=== PATIENT | female | born 1975 | race Caucasian/White ===

== ENCOUNTER 2018-10-09 07:44 | Emergency (ER) | payer OTHER, SELFPAY ==
[2018-10-09 07:45] VITALS: BP 122/62; PULSE 85; RESP 18; TEMP 36.5; O2SAT 100; BMI 33.3
--- NOTE | 2018-10-09 08:11 | ED.PREGNANCY ---
HPI - General Chief complaint: OB/Uterine Contractions Stated complaint: Sharp Ovary pain,poss Time Seen by Provider: 10/09/18 07:48 Source: patient and family () Mode of arrival: ambulatory Limitations: no limitations History of Present Illness HPI Narrative: This is a 43-year-old female comes to the emergency department with complaint of left lower abdominal pain. She states she started noticing pain last night about 7:00 a.m.. Patient states it has become increasingly severe. Patient states she has had a positive test over the weekend. She has felt sort of chills, she had some breast tenderness, she started having a little bit of spotting on Tuesday. She has not had any other vaginal bleeding or discharge. Patient denies any fevers, she denies any nausea or vomiting. Patient states the pain in her left lower abdomen is pretty significant. She has had ovarian cysts in the past but not for quite a while. She states this is her 1st . She did not use any in vitro fertilization or medications to assist with . Patient states that she had her last regular period about mid July but states she did have a. Early August, patient states it is roller and shorter and only 3 days in length. She has a history of rosacea as well as ovarian cyst. Denies any other past medical history. She has denies any prior surgical history. Allergies include codeine which causes vomiting. She denies any other allergies. She does, she occasionally drinks alcohol. She denies any illicit. She has a primary care through the [facility]. Date of Last Menstrual Period: 09/02/18 (very light, spotting, last regular menstrual period 08/12/19. ) Patient : Yes Expected Date of Delivery: 06/07/19 Related Data Previous Rx's Medication Instructions Recorded hydrocodone-acetaminophen [[place]] 1 tab PO Q6H PRN #10 tab 10/09/18 prenat.vits,mami,[id number] 1 tab PO DAILY #30 tab 10/09/18 Allergies Allergy/AdvReac Type Severity Reaction Status Date / Time codeine Allergy Intermediate Vomiting Verified 10/09/18 07:59 Review of Systems Review of Systems ROS Unobtainable: All systems reviewed & are unremarkable except as noted in HPI and below Constitutional Denies chills, Denies fever(s), Denies lethargy and Denies weakness Gastrointestinal Gastrointestinal: Reports abdominal pain (left sided pelvic pain), Denies change in bowel habits, Denies diarrhea, Reports nausea and Denies vomiting Genitourinary Reports as per HPI, Reports abnormal menses (normal menses mid July, short and light/ early August.), Reports abnormal vaginal bleeding (spotting Tuesday.), Denies hematuria, Reports pelvic pain (left sided), Denies flank pain, Denies urinary incontinence, Denies urinary urgency, Denies vaginal discharge and Denies vaginal odor Integumentary/Breasts Denies rash Neurologic Denies weakness PMFSH - Past Medical History Medical history: Reports other (rosacea) Ovarian cysts Surgical history: Reports no surgical history 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 ) Patient : Yes Expected Date of Delivery: 06/07/19 Exam Narrative Exam Narrative: GENERAL: Alert and oriented x three, well-nourished, well-appearing female in moderate distress. HEENT: Head normocephalic, atraumatic, EOMI, pupils reactive, face symmetric, moist mucous membranes NECK: Supple, full range of motion CARDIOVASCULAR: Regular rate and rhythm without murmurs, rubs or gallops. RESPIRATORY: Breath sounds equal bilaterally, no wheezes rales or rhonchi. ABDOMEN: Soft, left lower quadrant tenderness. Normoactive bowel sounds all 4 quadrants. No guarding or rebound, rigidity, no mass : Mild left CVA tenderness EXTREMITIES: Normal range of motion, no clubbing or edema. Neurovascularly intact. NEUROLOGICAL: Cranial nerves II through XII grossly intact. Moving all extremities SKIN: Warm, dry, no petechiae, no rashes or lesions. Initial Vital Signs Initial Vital Signs: Vital Signs Temperature 97.7 F 10/09/18 07:45 Pulse Rate 85 10/09/18 07:45 Respiratory Rate 18 10/09/18 07:45 Blood Pressure 122/62 10/09/18 07:45 Pulse Oximetry 100 10/09/18 07:45 Course Orders Ordered: Discontinued Medications Sodium Chloride (Normal Saline 0.9%) 1,000 mls @ 150 mls/hr IV CONT CARMEN Last Infusion: 10/09/18 10:32 Dose: 0 mls/hr Admin: 10/09/18 08:23 Dose: 150 mls/hr Morphine Sulfate (Morphine) 4 mg IV NOW ONE Stop: 10/09/18 08:10 Last Admin: 10/09/18 08:22 Dose: 4 mg Ondansetron HCl (Zofran) 4 mg IV NOW ONE Stop: 10/09/18 08:10 Last Admin: 10/09/18 08:22 Dose: 4 mg Vital Signs - 8 hr 10/09/18 07:45 Temperature 97.7 F Pulse Rate 85 Respiratory Rate 18 Blood Pressure 122/62 Pulse Oximetry 100 MDM - OB/Uterine Contractions Lab Data Attestation: I reviewed the patient's lab results. Result diagrams: 10/09/18 08:00 10/09/18 08:00 Lab Results 10/09/18 10/09/18 10/09/18 Range/Units 08:00 08:00 08:00 WBC 10.9 (4.5-11.0) X10^3/uL RBC 4.35 (4.0-5.2) X10^6/uL Hgb 13.7 (12.0-16.0) g/dL Hct 39.0 (36-46) % MCV 89.7 (80-100) fL MCH 31.5 (26-34) PG MCHC 35.1 (30-36) % RDW 13.1 (11.6-14.8) % Plt Count 276 (150-400) X10^3/uL Neut % (Auto) 69.4 (50-75) % Lymph % (Auto) 19.1 L (25-40) % Otero % (Auto) 6.2 (3-14) % Eos % (Auto) 4.7 H (2-4) % Baso % (Auto) 0.6 (0-2) % Neut # (Auto) 7600 H (2303-6786) /uL Lymph # (Auto) 2100 (5438-5442) /uL Otero # (Auto) 700 (0-900) /uL Eos # (Auto) 500 H (0-450) /uL Baso # (Auto) 100 (0-100) /uL Sodium 136 L (137-145) mmol/L Potassium 3.9 (3.4-5.1) mmol/L Chloride 104 (98-107) mmol/L Carbon Dioxide 23 (22-32) mmol/L BUN 11 (7-17) mg/dL Creatinine 0.60 (0.52-1.04) mg/dL Estimated GFR > 60.0 (>60) mL/min BUN/Creatinine Ratio 18.3 (6-22) Glucose 94 (70-100) mg/dL Calcium 8.7 (8.4-10.2) mg/dL Total Bilirubin 0.5 (0.2-1.3) mg/dL AST 23 (14-36) IU/L ALT 28 (9-52) IU/L Alkaline Phosphatase 61 (38-126) U/L Total Protein 7.3 (6.3-8.2) g/dL Albumin 4.3 (3.5-5.0) g/dL Globulin 3.0 (1.7-4.1) g/dL Albumin/Globulin Ratio 1.4 (1.0-2.8) HCG, Quant 7421.0 mIU/mL Urine RBC (0-5/HPF) Urine WBC (0-5/HPF) Ur Squamous Epith Cells Urine Bacteria (None) Urine Mucus (Negative) Ur Culture Indicated? Blood Type A Positive 10/09/18 Range/Units 08:00 WBC (4.5-11.0) X10^3/uL RBC (4.0-5.2) X10^6/uL Hgb (12.0-16.0) g/dL Hct (36-46) % MCV (80-100) fL MCH (26-34) PG MCHC (30-36) % RDW (11.6-14.8) % Plt Count (150-400) X10^3/uL Neut % (Auto) (50-75) % Lymph % (Auto) (25-40) % Otero % (Auto) (3-14) % Eos % (Auto) (2-4) % Baso % (Auto) (0-2) % Neut # (Auto) (1136-9871) /uL Lymph # (Auto) (6353-7168) /uL Otero # (Auto) (0-900) /uL Eos # (Auto) (0-450) /uL Baso # (Auto) (0-100) /uL Sodium (137-145) mmol/L Potassium (3.4-5.1) mmol/L Chloride (98-107) mmol/L Carbon Dioxide (22-32) mmol/L BUN (7-17) mg/dL Creatinine (0.52-1.04) mg/dL Estimated GFR (>60) mL/min BUN/Creatinine Ratio (6-22) Glucose (70-100) mg/dL Calcium (8.4-10.2) mg/dL Total Bilirubin (0.2-1.3) mg/dL AST (14-36) IU/L ALT (9-52) IU/L Alkaline Phosphatase (38-126) U/L Total Protein (6.3-8.2) g/dL Albumin (3.5-5.0) g/dL Globulin (1.7-4.1) g/dL Albumin/Globulin Ratio (1.0-2.8) HCG, Quant mIU/mL Urine RBC 0-1/hpf (0-5/HPF) Urine WBC 0-1/hpf (0-5/HPF) Ur Squamous Epith Cells 5-10 /hpf H Urine Bacteria Few (2-10) H (None) Urine Mucus 1+ H (Negative) Ur Culture Indicated? Cult not indicated Blood Type Point of Care Testing Test Results Positive Urine Dip Bedside Urine Glucose Negative Bedside Urine Bilirubin - Negative Bedside Urine Ketone - Negative Urine Specific [place] 1.020 Bedside Urine Occult Blood +/- Bedside Urine pH 6.0 Bedside Urine Protein +/- 15 Bedside Urine Urobilinogen +/- 1mg Bedside Urine Nitrite - Negative Bedside Urine Leukocytes - Negative Esterase Imaging Data pelvic US: Radiologist's impression: [place] [address] Ultrasound Report Signed Patient: Gertrude Dumas [facility]#: [id number] : 1975Acct:[id number] Age/Sex: 43 / FDate of Service: 10/09/18 Loc: ED Accession Number: [id number] Procedure: US OB <= 14 weeks fetus Ordering Provider: Aline Ruiz D.O. PROCEDURE: US OB <= 14 WEEKS FETUS INDICATIONS: LEFT ADNEXAL PAIN OUTSIDE/PRIOR DATING DATA: Last menstrual period (LMP): 08/05/18. LMP-based estimated date of delivery (OBI): 05/12/19. First dating scan (date and location): This study, 10/09/18. Estimated date of delivery (OBI) from first dating scan: 06/05/19, plus or -7 days, based on this study. TECHNIQUE: Real-time scanning was performed of the fetus and maternal pelvic organs, with image documentation. Endovaginal scanning was also performed to better visualize the fetus and maternal ovaries. COMPARISON: None. FINDINGS: Embryo: A fetus is not yet seen but there is what appears to be a gestational sac with a yolk sac within, with a mean sac diameter 1.1 cm that correlates with the gestational age of 5 weeks 6 days Measurement variability in dating: +/- 4 weeks by LMP, +/- 7 days by mean sac diameter (use before 6 weeks gestation if crown-rump length not able to be measured), +/- 5 days by crown-rump length (up to 8 weeks 6 days gestation), +/- 7 days by crown-rump length (up to 13 weeks 6 days gestation). Maternal organs: Ovaries normal considering gestational status. Limited images through the kidneys demonstrate no hydronephrosis. IMPRESSION: Intrauterine gestational sac is visualized but a pole is not yet seen and at this early stage of would not be expected to be visualized. The current age would be estimated at 5 weeks 6 days, plus or -7 days, assuming viable gestation. No suspicion for ectopic based on this study. Followup OB ultrasound in 7-10 days may be warranted to document viable intrauterine gestation. Followup anatomic survey at 21 weeks gestation is recommended. Dictated by: Werner Contreras M.D. on 10/09/2018 at 9:17 Approved by: Werner Contreras M.D. on 10/09/2018 at 9:19 [facility] Narrative Medical decision making narrative: By dates and patient exam concerning for ectopic . Patient's ultrasound shows introduced uterine gestational sac visualized but no pole is seen. Patient's age BS dated 5 to suggest weeks. Patient ECG is in the 7000 range, she is Rh positive. Lab work does not show any major acute abnormalities. Patient has a corpus luteum cyst. By exam and lab work no other suspicious causes for abdominal pain at this time. We did give some anticipatory guidance. Plan for follow-up with OBGYN. Patient is to start prenatals. Discharge Plan Departure Patient Disposition: Home Clinical Impression: Abdominal pain during Qualifiers: Trimester: first trimester Qualified Code(s): O26.891 - Other specified related conditions, first trimester Discharge Date/Time: 10/09/18 10:33 Interventions: ED Discharge Assessment Last Done: 10/09/18 10:33 Instructions: Reducing Foodborne Risks During , DI for Vaginal Bleeding During , DI for Abdominal Pain -- Early Activity Restrictions/Additional Instructions: Follow up with lobsterman in the next week for recheck, call for an appointment. Take vitamins once daily. A prescription for prenatals was sent to [facility]. You may continue normal activities, no heavy lifting or exertional activities till cleared by physician. You may take pain medications as prescribed, these medications can make you sleepy, do not drive, perform hazardous activities or make any major decisions while taking them. Avoid taking narcotic pain medications unless necessary, you may take tylenol instead. You may take up to 1000mg every 8 hours or 3000mg total in 24 hours. Your narcotic pain medication does have some tylenol in it. Return for fevers greater than 100.4F, rapidly worsening pain, large clots or rapidly increasing bleeding, persistent vomiting, black or bloody stools or other new or concerning symptoms. Prescriptions: New prenat.vits,mami,[id number] tablet 1 tab PO DAILY Qty: 30 RF: 0 hydrocodone-acetaminophen [[place]] 5-325 mg tablet 1 tab PO Q6H PRN (Reason: pain) Qty: 10 RF: 0 Referrals: Shania Rivas MD [Physician] -
[2018-10-09] MEDS: MORPHINE 4 MG/ML INJ IV (08:22)
[2018-10-09] MEDS: ONDANSETRON 4 MG/2 ML INJ IV (08:22)
[2018-10-09] MEDS: SODIUM CHLORIDE 0.9% 1,000 ML 150 ML IV (08:23)
--- NOTE | 2018-10-09 08:24 | ED_ITS ---
HPI - General Chief complaint: OB/Uterine Contractions Stated complaint: Sharp Ovary pain,poss Time Seen by Provider: 10/09/18 07:48 Source: patient and family () Mode of arrival: ambulatory Limitations: no limitations History of Present Illness HPI Narrative: This is a 43-year-old female comes to the emergency department with complaint of left lower abdominal pain. She states she started noticing pain last night about 7:00 a.m.. Patient states it has become increasingly severe. Patient states she has had a positive test over the weekend. She has felt sort of chills, she had some breast tenderness, she started having a little bit of spotting on Tuesday. She has not had any other vaginal bleeding or discharge. Patient denies any fevers, she denies any nausea or vomiting. Patient states the pain in her left lower abdomen is pretty significant. She has had ovarian cysts in the past but not for quite a while. She states this is her 1st . She did not use any in vitro fertilization or medications to assist with . Patient states that she had her last regular period about mid July but states she did have a. 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 She has a history of rosacea as well as ovarian cyst. Denies any other past medical history. She has denies any prior surgical history. Allergies include codeine which causes vomiting. She denies any other allergies. She does, she occasionally drinks alcohol. She denies any illicit. She has a primary care through the [facility]. Date of Last Menstrual Period: 09/02/18 (very light, spotting, last regular menstrual period 08/12/19. ) Patient : Yes Expected Date of Delivery: 06/07/19 Related Data Previous Rx's Medication Instructions Recorded hydrocodone-acetaminophen [[place]] 1 tab PO Q6H PRN #10 tab 10/09/18 prenat.vits,mami,[id number] 1 tab PO DAILY #30 tab 10/09/18 Allergies Allergy/AdvReac Type Severity Reaction Status Date / Time codeine Allergy Intermediate Vomiting Verified 10/09/18 07:59 Review of Systems Review of Systems ROS Unobtainable: All systems reviewed & are unremarkable except as noted in HPI and below Constitutional Denies chills, Denies fever(s), Denies lethargy and Denies weakness Gastrointestinal Gastrointestinal: Reports abdominal pain (left sided pelvic pain), Denies change in bowel habits, Denies diarrhea, Reports nausea and Denies vomiting Genitourinary Reports as per HPI, Reports abnormal menses (normal menses mid July, short and light/ early August.), Reports abnormal vaginal bleeding (spotting Tuesday.), Denies hematuria, Reports pelvic pain (left sided), Denies flank pain, Denies urinary incontinence, Denies urinary urgency, Denies vaginal discharge and Denies vaginal odor Integumentary/Breasts Denies rash Neurologic Denies weakness PMFSH - Past Medical History Medical history: Reports other (rosacea) Ovarian cysts 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 ) Patient : Yes Expected Date of Delivery: 06/07/19 Exam Narrative Exam Narrative: GENERAL: Alert and oriented x three, well-nourished, well- appearing female in moderate distress. HEENT: Head normocephalic, atraumatic, EOMI, pupils reactive, face symmetric, moist mucous membranes NECK: Supple, full range of motion CARDIOVASCULAR: Regular rate and rhythm without murmurs, rubs or gallops. RESPIRATORY: Breath sounds equal bilaterally, no wheezes rales or rhonchi. ABDOMEN: Soft, left lower quadrant tenderness. Normoactive bowel sounds all 4 quadrants. No guarding or rebound, rigidity, no mass : Mild left CVA tenderness EXTREMITIES: Normal range of motion, no clubbing or edema. Neurovascularly intact. NEUROLOGICAL: Cranial nerves II through XII grossly intact. Moving all extremities SKIN: Warm, dry, no petechiae, no rashes or lesions. Initial Vital Signs Initial Vital Signs: Vital Signs Temperature 97.7 F 10/09/18 07:45 Pulse Rate 85 10/09/18 07:45 Respiratory Rate 18 10/09/18 07:45 Blood Pressure 122/62 10/09/18 07:45 Pulse Oximetry 100 10/09/18 07:45 Course Orders Ordered: Discontinued Medications Sodium Chloride (Normal Saline 0.9%) 1,000 mls @ 150 mls/hr IV CONT CARMEN Last Infusion: 10/09/18 10:32 Dose: 0 mls/hr Admin: 10/09/18 08:23 Dose: 150 mls/hr Morphine Sulfate (Morphine) 4 mg IV NOW ONE Stop: 10/09/18 08:10 Last Admin: 10/09/18 08:22 Dose: 4 mg Ondansetron HCl (Zofran) 4 mg IV NOW ONE Stop: 10/09/18 08:10 Last Admin: 10/09/18 08:22 Dose: 4 mg Vital Signs - 8 hr 10/09/18 07:45 Temperature 97.7 F Pulse Rate 85 Respiratory Rate 18 Blood Pressure 122/62 Pulse Oximetry 100 MDM - OB/Uterine Contractions Lab Data Attestation: I reviewed the patient's lab results. Result diagrams: 10/09/18 08:00 10/09/18 08:00 Lab Results 10/09/18 10/09/18 10/09/18 Range/Units 08:00 08:00 08:00 WBC 10.9 (4.5-11.0) X10^3/uL RBC 4.35 (4.0-5.2) X10^6/uL Hgb 13.7 (12.0-16.0) g/dL Hct 39.0 (36-46) % MCV 89.7 (80-100) fL MCH 31.5 (26-34) PG MCHC 35.1 (30-36) % RDW 13.1 (11.6-14.8) % Plt Count 276 (150-400) X10^3/uL Neut % (Auto) 69.4 (50-75) % Lymph % (Auto) 19.1 L (25-40) % [place]rent[place] % (Auto) 6.2 (3-14) % Eos % (Auto) 4.7 H (2-4) % Baso % (Auto) 0.6 (0-2) % Neut # (Auto) 7600 H (3287-0017) /uL Lymph # (Auto) 2100 (8578-6530) /uL [place] # (Auto) 700 (0-900) /uL Eos # (Auto) 500 H (0-450) /uL Baso # (Auto) 100 (0-100) /uL Sodium 136 L (137-145) mmol/L Potassium 3.9 (3.4-5.1) mmol/L Chloride 104 (98-107) mmol/L Carbon Dioxide 23 (22-32) mmol/L BUN 11 (7-17) mg/dL Creatinine 0.60 (0.52-1.04) mg/dL Estimated GFR > 60.0 (>60) mL/min BUN/Creatinine Ratio 18.3 (6-22) Glucose 94 (70-100) mg/dL Calcium 8.7 (8.4-10.2) mg/dL Total Bilirubin 0.5 (0.2-1.3) mg/dL AST 23 (14-36) IU/L ALT 28 (9-52) IU/L Alkaline Phosphatase 61 (38-126) U/L Total Protein 7.3 (6.3-8.2) g/dL Albumin 4.3 (3.5-5.0) g/dL Globulin 3.0 (1.7-4.1) g/dL Albumin/Globulin Ratio 1.4 (1.0-2.8) HCG, Quant 7421.0 mIU/mL Urine RBC (0-5/HPF) Urine WBC (0-5/HPF) Ur Squamous Epith Cells Urine Bacteria (None) Urine Mucus (Negative) Ur Culture Indicated? Blood Type A Positive 10/09/18 Range/Units 08:00 WBC (4.5-11.0) X10^3/uL RBC (4.0-5.2) X10^6/uL Hgb (12.0-16.0) g/dL Hct (36-46) % MCV (80-100) fL MCH (26-34) PG MCHC (30-36) % RDW (11.6-14.8) % Plt Count (150-400) X10^3/uL Neut % (Auto) (50-75) % Lymph % (Auto) (25-40) % [place]rent[place] % (Auto) (3-14) % Eos % (Auto) (2-4) % Baso % (Auto) (0-2) % Neut # (Auto) (2077-7117) /uL Lymph # (Auto) (1084-0387) /uL [place]rentiss # (Auto) (0-900) /uL Eos # (Auto) (0-450) /uL Baso # (Auto) (0-100) /uL Sodium (137-145) mmol/L Potassium (3.4-5.1) mmol/L Chloride (98-107) mmol/L Carbon Dioxide (22-32) mmol/L BUN (7-17) mg/dL Creatinine (0.52-1.04) mg/dL Estimated GFR (>60) mL/min BUN/Creatinine Ratio (6-22) Glucose (70-100) mg/dL Calcium (8.4-10.2) mg/dL Total Bilirubin (0.2-1.3) mg/dL AST (14-36) IU/L ALT (9-52) IU/L Alkaline Phosphatase (38-126) U/L Total Protein (6.3-8.2) g/dL Albumin (3.5-5.0) g/dL Globulin (1.7-4.1) g/dL Albumin/Globulin Ratio (1.0-2.8) HCG, Quant mIU/mL Urine RBC 0-1/hpf (0-5/HPF) Urine WBC 0-1/hpf (0-5/HPF) Ur Squamous Epith Cells 5-10 /hpf H Urine Bacteria Few (2-10) H (None) Urine Mucus 1+ H (Negative) Ur Culture Indicated? Cult not indicated Blood Type Point of Care Testing Test Results Positive Urine Dip Bedside Urine Glucose Negative Bedside Urine Bilirubin - Negative Bedside Urine Ketone - Negative Urine Specific [place] 1.020 Bedside Urine Occult Blood +/- Bedside Urine pH 6.0 Bedside Urine Protein +/- 15 Bedside Urine Urobilinogen +/- 1mg Bedside Urine Nitrite - Negative Bedside Urine Leukocytes - Negative Esterase Imaging Data pelvic US: Radiologist's impression: [place] [address] Ultrasound Report Signed Patient: Gertrude Dumas [facility]#: [id number] : 1975Acct:[id number] Age/Sex: 43 / FDate of Service: 10/09/18 Loc: ED Accession Number: [id number] Procedure: US OB <= 14 weeks fetus Ordering Provider: Aline Ruiz D.O. PROCEDURE: US OB <= 14 WEEKS FETUS INDICATIONS: LEFT ADNEXAL PAIN OUTSIDE/PRIOR DATING DATA: Last menstrual period (LMP): 08/05/18. LMP-based estimated date of delivery (OBI): 05/12/19. First dating scan (date and location): This study, 10/09/18. Estimated date of delivery (OBI) from first dating scan: 06/05/19, plus or -7 days, based on this study. TECHNIQUE: Real-time scanning was performed of the fetus and maternal pelvic organs, with image documentation. Endovaginal scanning was also performed to better visualize the fetus and maternal ovaries. COMPARISON: None. FINDINGS: Embryo: A fetus is not yet seen but there is what appears to be a gestational sac with a yolk sac within, with a mean sac diameter 1.1 cm that correlates with the gestational age of 5 weeks 6 days Measurement variability in dating: +/- 4 weeks by LMP, +/- 7 days by mean sac diameter (use before 6 weeks gestation if crown-rump length not able to be measured), +/- 5 days by crown-rump length (up to 8 weeks 6 days gestation), +/- 7 days by crown-rump length (up to 13 weeks 6 days gestation). Maternal organs: Ovaries normal considering gestational status. Limited images through the kidneys demonstrate no hydronephrosis. IMPRESSION: Intrauterine gestational sac is visualized but a pole is not yet seen and at this early stage of would not be expected to be visualized. The current age would be estimated at 5 weeks 6 days, plus or -7 days, assuming viable gestation. No suspicion for ectopic based on this study. Followup OB ultrasound in 7-10 days may be warranted to document viable intrauterine gestation. Followup anatomic survey at 21 weeks gestation is recommended. Dictated by: Werner Contreras M.D. on 10/09/2018 at 9:17 Approved by: Werner Contreras M.D. on 10/09/2018 at 9:19 [facility] Narrative Medical decision making narrative: By dates and patient exam concerning for ect opic . Patient's ultrasound shows introduced uterine gestational sac visualized but no pole is seen. Patient's age BS dated 5 to suggest weeks. Patient ECG is in the 7000 range, she is Rh positive. Lab work does not show any major acute abnormalities. Patient has a corpus luteum cyst. By exam and lab work no other suspicious causes for abdominal pain at this time. We did give some anticipatory guidance. Plan for follow-up with OBGYN. Patient is to start prenatals. 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 Take vitamins once daily. A prescription for prenatals was sent to [facility]. You may continue normal activities, no heavy lifting or exertional activities till cleared by physician. You may take pain medications as prescribed, these medications can make you sleepy, do not drive, perform hazardous activities or make any major decisions while taking them. Avoid taking narcotic pain medications unless necessary, you may take tylenol instead. You may take up to 1000mg every 8 hours or 3000mg total in 24 hours. Your narcotic pain medication does have some tylenol in it. Return for fevers greater than 100.4F, rapidly worsening pain, large clots or rapidly increasing bleeding, persistent vomiting, black or bloody stools or other new or concerning symptoms. Prescriptions: New prenat.vits,mami,[id number] tablet 1 tab PO DAILY Qty: 30 RF: 0 hydrocodone-acetaminophen [[place]] 5-325 mg tablet 1 tab PO Q6H PRN (Reason: pain) Qty: 10 RF: 0 Referrals: Shania Rivas MD [Physician] -
[2018-10-09 08:34] LABS: Add Manual Diff / Slide Review NO; Basophils Absolute Auto 100 /uL (0-100); Basophils Percent Auto 0.6 % (0-2); Eosinophils Absolute Auto 500 /uL (0-450); Eosinophils Percent Auto 4.7 % (2-4); Hemoglobin 13.7 g/dL (12.0-16.0); Lymphocytes Absolute Auto 2100 /uL (1100-4500); Lymphocytes Percent Auto 19.1 % (25-40); Mean Corpuscular HGB Conc 35.1 % (30-36); Mean Corpuscular Hemoglobin 31.5 PG (26-34); Mean Corpuscular Volume 89.7 fL (80-100); Monocytes Absolute Auto 700 /uL (0-900); Monocytes Percent Auto 6.2 % (3-14); Neutrophils Absolute Auto 7600 /uL (1500-7000); Neutrophils Percent Auto 69.4 % (50-75); Platelet Count 276 X10^3/uL (150-400); Red Blood Cell Count 4.35 X10^6/uL (4.0-5.2); Red Cell Distribution Width 13.1 % (11.6-14.8); White Blood Cell Count 10.9 X10^3/uL (4.5-11.0)
[2018-10-09 08:50] LABS: Bacteria Urine Few (2-10); Culture Indicated Urine Cult Not Indicated; Mucus Urine 1+ (Negative); RBC Urine 0-1/HPF (0-5/HPF); Squamous Epithelial Cell Urine 5-10 /HPF; WBC Urine 0-1/HPF (0-5/HPF)
[2018-10-09 08:59] LABS: Alanine Aminotransferase 28 IU/L (9-52); Albumin 4.3 g/dL (3.5-5.0); Albumin Globulin Ratio 1.4 (1.0-2.8); Alkaline Phosphatase 61 U/L (38-126); Aspartate Aminotransferase 23 IU/L (14-36); BUN Creatinine Ratio 18.3 (6-22); Bilirubin Total 0.5 mg/dL (0.2-1.3); Blood Urea Nitrogen 11 mg/dL (7-17); Calcium 8.7 mg/dL (8.4-10.2); Carbon Dioxide 23 mmol/L (22-32); Chloride 104 mmol/L (98-107); Estimated Glomerular Filt Rate > 60.0 mL/min (>60); Glucose 94 mg/dL (70-100); HEMOLYSIS < 15 (0-50); Potassium 3.9 mmol/L (3.4-5.1); Sodium 136 mmol/L (137-145); Total Protein 7.3 g/dL (6.3-8.2)
[2018-10-09 10:12] VITALS: BP 111/61; PULSE 64; RESP 16; O2SAT 100
== END 2018-10-09 10:33 | disposition home or self-care (01) ==
PROVIDERS: Emergency Provider Emergency Medicine
DX: O26.891 Other specified pregnancy related conditions, first trimester (principal); R10.9 Unspecified abdominal pain
CPT/HCPCS: 36591; 76801; 76817; 80053; 81003; 81015; 81025; 84702; 85025; 86900; 86901; 96361; 96374; 96375; 99283; 99284; J2270; J2405

== ENCOUNTER 2019-08-04 14:09 | Emergency (ER) | payer OTHER, SELFPAY ==
[2019-08-04 14:17] VITALS: BP 133/83; PULSE 72; RESP 16; TEMP 36.6; O2SAT 98; BMI 35.4
[2019-08-04 15:08] LABS: Bacteria Urine Few (2-10); Culture Indicated Urine Specimen Cultured; RBC Urine >100/HPF (0-5/HPF); Squamous Epithelial Cell Urine 0-1 /HPF (0-5/HPF); WBC Urine 10-30/HPF (0-5/HPF)
--- NOTE | 2019-08-04 15:32 | ED.FEMALEGU ---
HPI - Female Genitourinary <INOCENCIO Crook - Last Filed: 08/04/19 16:04> General Chief complaint: Urogenital-Female Stated complaint: poss UTI Time Seen by Provider: 08/04/19 14:26 Source: patient Mode of arrival: Ambulatory Limitations: no limitations History of Present Illness HPI Narrative: The patient is a 43-year-old female nonsmoker presents with the chief complaint dysuria urgency and frequency since yesterday. She states her urine is dark. She denies any fevers nausea vomiting or diarrhea. She denies any back pain, vaginal discharge, possibility of . She denies any abdominal pain, she denies any flank pain. Related Data Home Medications Medication Instructions Recorded Confirmed doxycycline hyclate 100 mg PO BID 08/04/19 08/04/19 Previous Rx's Medication Instructions Recorded sulfamethoxazole-trimethoprim 1 tab PO BID #10 tab 08/04/19 [Bactrim DS] Allergies Allergy/AdvReac Type Severity Reaction Status Date / Time codeine Allergy Intermediate Vomiting Verified 08/04/19 14:23 Review of Systems <INOCENCIO Crook - Last Filed: 08/04/19 16:04> Review of Systems Narrative: GENERAL: Denies chills, fatigue, malaise, fever, sweats. HEENT: Denies sinus pain, ear pain, sore throat, difficulty swallowing, dizziness. RESPIRATORY: Denies dyspnea, cough, wheezing, hemoptysis, sputum. CARDIOVASCULAR: Denies chest pain, palpitations, orthopnea, edema, GASTROINTESTINAL: Denies nausea, vomiting, abdominal pain, diarrhea, constipation, melena. : See HPI MUSCULOSKELETAL: denies weakness, joint pain, or bony pain SKIN: Denies rash, skin lesions, or other NEUROLOGIC: Denies weakness, headache, numbness, change in speech, confusion, seizures, incoordination. PSYCHIATRIC: No concerning psychosocial issues. 12 point review of systems is negative except for those stated above Patient History <INOCENCIO Crook - Last Filed: 08/04/19 16:04> alcohol intake frequency: 0-2 drinks per day Substance Use Type: does not use Exam <INOCENCIO Crook - Last Filed: 08/04/19 16:04> Narrative Exam Narrative: GENERAL: This is a well-nourished, well-developed patient, in no acute distress HEAD: Atraumatic. Normocephalic. No temporal or scalp tenderness. EYES: Pupils equal round and reactive. Extraocular motions intact. No scleral icterus. No injection or drainage. ENT: Nose without bleeding, purulent drainage or septal hematoma. Throat without erythema, tonsillar hypertrophy or exudate. Uvula midline. Airway patent. NECK: Trachea midline. No JVD or lymphadenopathy. Supple, nontender, no meningeal signs. CARDIOVASCULAR: Regular rate and rhythm RESPIRATORY: Clear to auscultation. Breath sounds equal bilaterally. No wheezes, rales, or rhonchi. No cough. No increased respiratory effort. No accessory muscle use. GASTROINTESTINAL: Abdomen soft, non-tender, nondistended. No hepato-splenomegaly, or palpable masses. No guarding. No pain to palpation. Active bowel sounds all 4 quadrants. No suprapubic pain to palpation. EXTREMITIES: No clubbing, cyanosis, or edema. No joint tenderness, effusion, or edema noted. BACK: Nontender without deformity or crepitance. No flank tenderness. NEURO: AOx3. SKIN: No rash or erythema. Initial Vital Signs Initial Vital Signs: Vital Signs Temperature 97.8 F 08/04/19 14:17 Pulse Rate 72 08/04/19 14:17 Respiratory Rate 16 08/04/19 14:17 Blood Pressure 133/83 08/04/19 14:17 Pulse Oximetry 98 08/04/19 14:17 <Jesse Jack MD - Last Filed: 08/04/19 21:17> Initial Vital Signs Initial Vital Signs: Vital Signs Temperature 97.8 F 08/04/19 14:17 Pulse Rate 72 08/04/19 14:17 Respiratory Rate 16 08/04/19 14:17 Blood Pressure 133/83 08/04/19 14:17 Pulse Oximetry 98 08/04/19 14:17 Course <INOCENCIO Crook - Last Filed: 08/04/19 16:04> Orders Ordered: ED Orders 08/04/19 14:51 Urine Culture Stat Urine Microscopic Stat Vital Signs Vital signs: Vital Signs - 8 hr 08/04/19 14:17 08/04/19 15:45 Temperature 97.8 F Pulse Rate 72 70 Respiratory Rate 16 14 Blood Pressure 133/83 Pulse Oximetry 98 99 <Jesse Jack MD - Last Filed: 08/04/19 21:17> Orders Ordered: ED Orders 08/04/19 14:51 Urine Culture Stat Urine Microscopic Stat Vital Signs Vital signs: Vital Signs - 8 hr 08/04/19 14:17 08/04/19 15:45 Temperature 97.8 F Pulse Rate 72 70 Respiratory Rate 16 14 Blood Pressure 133/83 Pulse Oximetry 98 99 MDM - Female Genitourinary <MAGED Crook- - Last Filed: 08/04/19 16:04> Lab Data Labs: Lab Results 08/04/19 Range/Units 14:51 Urine RBC >100/hpf H (0-5/HPF) Urine WBC 10-30/hpf H (0-5/HPF) Ur Squamous Epith Cells 0-1 /hpf (0-5/HPF) Urine Bacteria Few (2-10) H (None) Ur Culture Indicated? Specimen cultured Point of Care Testing Test Results Negative Urine Dip Bedside Urine Glucose Negative Bedside Urine Bilirubin - Negative Bedside Urine Ketone - Negative Urine Specific [place] 1.010 Bedside Urine Occult Blood +++ Bedside Urine pH 6.0 Bedside Urine Protein + 30 Bedside Urine Urobilinogen - Negative Bedside Urine Nitrite - Negative Bedside Urine Leukocytes ++ 125 Esterase MDM Narrative Medical decision making narrative: The patient is a 43-year-old female presents with a chief complaint of urinary urgency, frequency and dysuria. Urinalysis is concerning for UTI, with leukocyte esterase, blood, bacteria. She is nontoxic appearing, tolerating p.o. fluids well, afebrile and denies any flank pain. She does not have any clinical signs of pyelonephritis at this point time. I placed her on Bactrim. Discussed that urine culture result in 48-72 hours. Encouraged pushing fluids. Discussed at length PCP follow-up as well as return precautions including signs of systemic infection. Patient has no questions or concerns upon discharge and states understanding of return precautions as well as follow-up care. <Jesse Jack MD - Last Filed: 08/04/19 21:17> Lab Data Labs: Lab Results 08/04/19 Range/Units 14:51 Urine RBC >100/hpf H (0-5/HPF) Urine WBC 10-30/hpf H (0-5/HPF) Ur Squamous Epith Cells 0-1 /hpf (0-5/HPF) Urine Bacteria Few (2-10) H (None) Ur Culture Indicated? Specimen cultured Point of Care Testing Test Results Negative Urine Dip Bedside Urine Glucose Negative Bedside Urine Bilirubin - Negative Bedside Urine Ketone - Negative Urine Specific Midnight 1.010 Bedside Urine Occult Blood +++ Bedside Urine pH 6.0 Bedside Urine Protein + 30 Bedside Urine Urobilinogen - Negative Bedside Urine Nitrite - Negative Bedside Urine Leukocytes ++ 125 Esterase Discharge Plan Departure Patient Disposition: Home Clinical Impression: Urinary tract infection Qualifiers: Urinary tract infection type: site unspecified Hematuria presence: with hematuria Qualified Code(s): N39.0 - Urinary tract infection, site not specified Discharge Date/Time: 08/04/19 15:46 Instructions: DI for Urinary Tract Infection (UTI) Activity Restrictions/Additional Instructions: I sent a prescription of Bactrim to [facility]. This should help your urinary tract infection. We have a urine culture pending and will call you in 2-3 days if we need to change your antibiotic Please push fluids. Please come back to the emergency department for any acute concerns such as inability keep down fluids, high fevers etc. Prescriptions: New sulfamethoxazole-trimethoprim [Bactrim DS] 800-160 mg tablet 1 tab PO BID Qty: 10 RF: 0 No Action doxycycline hyclate 100 mg capsule 100 mg PO BID RF: 0 Referrals: Alka Lewis ARNP [Primary Care Provider] -
[2019-08-04 15:45] VITALS: PULSE 70; RESP 14; O2SAT 99
== END 2019-08-04 15:46 | disposition home or self-care (01) ==
PROVIDERS: Emergency Provider Nurse Practitioner Family; PCP Nurse Practitioner Family
DX: N39.0 Urinary tract infection, site not specified (principal)
CPT/HCPCS: 81003; 81015; 81025; 87077; 87086; 87186; 99282; 99283

== ENCOUNTER → 2019-09-19 13:29 | Outpatient (CLI) | payer OTHER, SELFPAY ==
[2019-09-19 14:08] LABS: Influenza A - CEPHEID Flu A NEGATIVE (NEGATIVE); Influenza B - CEPHEID Flu B NEGATIVE (NEGATIVE)
== END ==
PROVIDERS: PCP Nurse Practitioner Family; Visit Provider Physician Assistant
DX: R68.89 Other general symptoms and signs (principal)
CPT/HCPCS: 87502

== ENCOUNTER 2019-09-19 14:35 | Emergency (ER) | payer OTHER, SELFPAY ==
[2019-09-19 14:45] VITALS: BP 130/84; PULSE 98; RESP 18; TEMP 37.3; O2SAT 99
[2019-09-19 15:28] LABS: Amorphous Sediment Urine 1+; Bacteria Urine Many (>30); Culture Indicated Urine Specimen Cultured; Mucus Urine 1+ (Negative); RBC Urine 0-1/HPF (0-5/HPF); Squamous Epithelial Cell Urine 5-10 /HPF (0-5/HPF); WBC Urine 10-30/HPF (0-5/HPF)
[2019-09-19] MEDS: ONDANSETRON 4 MG ODT SL (16:14)
[2019-09-19] MEDS: KETOROLAC 60 MG/2 ML VIAL IM (16:14)
[2019-09-19 17:45] VITALS: BP 114/69; PULSE 91; RESP 16; O2SAT 97
--- NOTE | 2019-09-19 21:10 | ED.URI ---
HPI - URI/Sore Throat General Chief Complaint: Upper Respiratory Symptoms Stated Complaint: does not feel well Time Seen by Provider: 09/19/19 15:31 Source: patient and family Mode of arrival: Ambulatory Limitations: no limitations History of Present Illness HPI Narrative: The patient is a 43-year-old female nonsmoker with history of UTI who presents with her for chief complaint of generalized not feeling well. She states that she has nasal congestion, muscle aches and chills. She complains of nausea, no vomiting, no abdominal pain or diarrhea. She has not taken anything at home to feel better as she states using the Neti pot is ?too much energy.She had a negative flu swab today at the walk-in clinic She does complain of a urinary complaints, complains of painful urination no urgency or frequency. She was treated for urinary tract infection last month. Denies any vaginal discharge or concerns for sexually transmitted infections. Related Data Home Medications Medication Instructions Recorded Confirmed doxycycline hyclate 100 mg PO BID 08/04/19 09/19/19 Previous Rx's Medication Instructions Recorded sulfamethoxazole-trimethoprim 1 tab PO BID #10 tab 08/04/19 [Bactrim DS] clotrimazole 1 % topical cream 1 applictn TOP BID 28 Days #30 gram 08/30/19 ketorolac 10 mg PO TID PRN #15 tab 09/19/19 nitrofurantoin monohyd/m-cryst 100 mg PO Q12H 7 Days #14 cap 09/19/19 [Macrobid] ondansetron 4 mg PO Q6H PRN #20 tab 09/19/19 Allergies Allergy/AdvReac Type Severity Reaction Status Date / Time codeine Allergy Intermediate Vomiting Verified 09/19/19 13:21 Review of Systems Review of Systems Narrative: GENERAL: See HPI HEENT: See HPI RESPIRATORY: Denies dyspnea, cough, wheezing, hemoptysis, sputum. CARDIOVASCULAR: Denies chest pain, palpitations, orthopnea, edema, GASTROINTESTINAL: See HPI : See HPI MUSCULOSKELETAL: denies weakness, joint pain, or bony pain SKIN: Denies rash, skin lesions, or other NEUROLOGIC: Denies weakness, headache, numbness, change in speech, confusion, seizures, incoordination. PSYCHIATRIC: No concerning psychosocial issues. 12 point review of systems is negative except for those stated above Patient History Social History Smoking Status: Former smoker Smoking Status: Former smoker alcohol intake frequency: 0-2 drinks per day Substance Use Type: does not use Exam Narrative Exam Narrative: GENERAL: This is a well-nourished, well-developed patient, no acute distress lying on stretcher HEAD: Atraumatic. Normocephalic. No temporal or scalp tenderness. EYES: Pupils equal round and reactive. Extraocular motions intact. No scleral icterus. No injection or drainage. ENT: Nose without bleeding, purulent drainage or septal hematoma. Throat without erythema, tonsillar hypertrophy or exudate. Uvula midline. Airway patent. Bilateral TMs pearly cassidy. Pain to palpation of all sinuses. Moist mucous membranes. NECK: Trachea midline. No JVD or lymphadenopathy. Supple, nontender, no meningeal signs. CARDIOVASCULAR: Regular rate and rhythm without murmurs, gallops, or rubs. RESPIRATORY: Clear to auscultation. Breath sounds equal bilaterally. No wheezes, rales, or rhonchi. No cough. No increased respiratory effort. GASTROINTESTINAL: Abdomen soft, non-tender, nondistended. No hepato-splenomegaly, or palpable masses. No guarding. Active bowel sounds all 4 quadrants. EXTREMITIES: No clubbing, cyanosis, or edema. No joint tenderness, effusion, or edema noted. BACK: Nontender without deformity or crepitance. No flank tenderness. NEURO: AOx3. SKIN: No rash or erythema visible Initial Vital Signs Initial Vital Signs: Vital Signs Temperature 99.2 F 09/19/19 14:45 Pulse Rate 98 H 09/19/19 14:45 Respiratory Rate 18 09/19/19 14:45 Blood Pressure 130/84 09/19/19 14:45 Pulse Oximetry 99 09/19/19 14:45 Scores GCS Faby coma scale eye opening: Spontaneous [place] coma scale verbal response: Orientated Faby coma scale motor response: Obey commands [place] coma scale total score: 15 Course Orders Ordered: ED Orders 09/19/19 15:16 Urine Culture Stat Urine Microscopic Stat Discontinued Medications Ketorolac Tromethamine (Toradol) 60 mg IM NOW ONE Stop: 09/19/19 15:55 Last Admin: 09/19/19 16:14 Dose: 60 mg Documented by: MASOUD Ondansetron HCl (Zofran Odt) 4 mg SL NOW ONE Stop: 09/19/19 15:55 Last Admin: 09/19/19 16:14 Dose: 4 mg Documented by: MASOUD Vital Signs Vital signs: Vital Signs - 8 hr 09/19/19 14:45 09/19/19 17:45 Temperature 99.2 F Pulse Rate 98 H 91 H Respiratory Rate 18 16 Blood Pressure 130/84 Blood Pressure [Left Arm] 114/69 Pulse Oximetry 99 97 MDM - URI/Sore Throat Lab Data Labs: Lab Results 09/19/19 Range/Units 15:16 Urine RBC 0-1/hpf D (0-5/HPF) Urine WBC 10-30/hpf H (0-5/HPF) Ur Squamous Epith Cells 5-10 /hpf H (0-5/HPF) Amorphous Sediment 1+ Urine Bacteria Many (>30) H (None) Urine Mucus 1+ H (Negative) Ur Culture Indicated? Specimen cultured Point of Care Testing Test Results Negative Urine Dip Bedside Urine Glucose Negative Bedside Urine Bilirubin - Negative Bedside Urine Ketone - Negative Urine Specific [place] 1.015 Bedside Urine Occult Blood +/- Bedside Urine pH 6.0 Bedside Urine Protein - Negative Bedside Urine Urobilinogen - Negative Bedside Urine Nitrite - Negative Bedside Urine Leukocytes + 70 Esterase MDM Narrative Medical decision making narrative: The patient is a 43-year-old female who presents with chief complaint of general malaise, not feeling well for the past day. Her urine is very concerning for infection, so I placed her on Macrobid. She is given Toradol and Zofran, was able tolerate a p.o. trial was very hungry looking at steak on menus. She felt much improved. She does also appear to have an upper respiratory infection, complaining of sinus pain and pressure. I discussed at length Neti pot, Tu med sinus rinse, Flonase [id number] medications as needed and able. The patient requested to go home. I discussed at length coming back to the emergency department for any acute concerns such as difficulty breathing and follow up with primary care provider in the next few days. The patient is able to ambulate around the emergency department throughout her stay, is hemodynamically stable, not tachycardic and normotensive. She has no questions or concerns upon discharge and states understanding of return precautions as well as follow-up care Discharge Plan Departure Patient Disposition: Home Clinical Impression: Upper respiratory infection Qualifiers: URI type: unspecified viral URI Qualified Code(s): J06.9 - Acute upper respiratory infection, unspecified UTI (urinary tract infection) Qualifiers: Urinary tract infection type: site unspecified Hematuria presence: without hematuria Qualified Code(s): N39.0 - Urinary tract infection, site not specified Discharge Date/Time: 09/19/19 17:46 Instructions: DI for Urinary Tract Infection (UTI), DI for Viral Upper Respiratory Infection -- Adult Activity Restrictions/Additional Instructions: Your urine shows signs of urinary tract infection. I've sent a prescription of an antibiotic to [facility]. There is a urine culture pending at this time. This would treat her previous urinary tract infection. If we need to change your antibiotic prescription, we will call you I also sent in a prescription of Zofran and Toradol. Please combine this with [id number] medications such as Sudafed, Flonase, Neti pot I have given you a prescription of Toradol. This is an NSAID. Do not combine it with other NSAIDs such as Aleve or ibuprofen. I suggest taking it with some food, as it can irritate your stomach. Please follow-up with primary care provider. Please come back to emergency department for any acute concerns such as inability keep down fluids, abdominal pain with fever etcetera Prescriptions: New nitrofurantoin monohyd/m-cryst [Macrobid] 100 mg capsule 100 mg PO Q12H 7 Days Qty: 14 RF: 0 ketorolac 10 mg tablet 10 mg PO TID PRN (Reason: pain) Qty: 15 RF: 0 ondansetron 4 mg tablet,disintegrating 4 mg PO Q6H PRN (Reason: nausea and vomiting) Qty: 20 RF: 0 No Action clotrimazole 1 % cream 1 applictn TOP BID 28 Days Qty: 30 RF: 4 doxycycline hyclate 100 mg capsule 100 mg PO BID RF: 0 sulfamethoxazole-trimethoprim [Bactrim DS] 800-160 mg tablet 1 tab PO BID Qty: 10 RF: 0 Referrals: Alka Lewis ARNP [Primary Care Provider] -
== END 2019-09-19 17:46 | disposition home or self-care (01) ==
PROVIDERS: Emergency Medicine; Emergency Provider Nurse Practitioner Family; PCP Nurse Practitioner Family
DX: J06.9 Acute upper respiratory infection, unspecified (principal); N39.0 Urinary tract infection, site not specified
CPT/HCPCS: 81003; 81015; 81025; 87086; 87502; 96372; 99283; J1885